=== PATIENT | female | born 1965 | race American Indian/Alaskan Native ===

== ENCOUNTER 2017-03-03 10:33 | Emergency (ER) | payer OTHER ==
[2017-03-03 10:46] VITALS: BP 115/76; PULSE 72; RESP 20; TEMP 98.8; O2SAT 99
--- NOTE | 2017-03-03 11:51 | C.PDOC ---
History Of Present Illness 52 yo female w/PMhx of HTN, NIDDM come in for evaluation of left ankle and foot itchy skin discoloration gradually developed for 3 months. Pt reports, was seen by PMD for current rash and received Rx: Clotrimazole and Hydrocortisone cream without improvement. Pt denies fever, chills, malaise, CP, SOB, dyspnea, diaphoresis, palpitation, cough, abd. pain, N/V, denies B/L calf pain, denies weakness, sensory or vascular deficits to B/L LEs, no risk factors for DVT, PE. Ambulate to ED for evaluation, not in any apparent distress. Time Seen by Provider: 03/03/17 11:22 Chief Complaint (Nursing): Abnormal Skin Integrity History Per: Patient Onset/Duration Of Symptoms: Gradual Past Medical History Reviewed: Historical Data, Nursing Documentation, Vital Signs Vital Signs: Last Vital Signs Temp 98.8 F 03/03/17 10:45 Pulse 72 03/03/17 10:45 Resp 20 03/03/17 10:45 BP 115/76 03/03/17 10:45 Pulse Ox 99 03/03/17 10:45 - Medical History PMH: Diabetes, HTN Surgical History: No Surg Hx Family History: States: No Known Family Hx - Social History Hx Alcohol Use: No Hx Substance Use: No - Immunization History Hx Tetanus Toxoid Vaccination: No Hx Influenza Vaccination: No Hx Pneumococcal Vaccination: No Review Of Systems Except As Marked, All Systems Reviewed And Found Negative. Constitutional: Negative for: Fever, Chills ENT: Negative for: Throat Pain, Throat Swelling Cardiovascular: Negative for: Edema, Light Headedness Respiratory: Negative for: Cough, Shortness of Breath, Wheezing Gastrointestinal: Negative for: Nausea, Vomiting, Abdominal Pain Musculoskeletal: Negative for: Neck Pain, Back Pain Skin: Positive for: Rash Neurological: Negative for: Weakness, Numbness, Altered Mental Status, Headache , Dizziness Physical Exam - Physical Exam Appears: Well, Non-toxic, No Acute Distress Skin: Normal Color, Warm, Rash (dry rash with skin thikening and brownish discoloration over Lateral left malleolu sand posterior aspect of ankle. NO erythema, no warm, no proximal streaking.) Throat: No Drooling Neck: Supple Cardiovascular: Rhythm Regular Respiratory: No Stridor, No Wheezing Gastrointestinal/Abdominal: Soft, No Tenderness, No Distention, No Guarding Back: No CVA Tenderness Extremity: No Pedal Edema, No Calf Tenderness (B/L), No Deformity Neurological/Psych: Oriented x3, Normal Speech, Normal Motor, Normal Sensation, Normal Reflexes ED Course And Treatment O2 Sat by Pulse Oximetry: 99 Pulse Ox Interpretation: Normal Progress Note: On re-eavluation, pt is afebrile, hemodynamicalys table. Non- toxic. PulsEOx 99% RA. ENT: no acute findings. Lungs: CTA B/L, BS equal B/L. Abd: benign. Neuorlogicaly intact. Skin: left ankle rash likely stasis dermatitis vs lichenification. Pt advised and ref. to F/u with PMD and Neuro, Derm in 2-3 days for re-eavl. return ifa ny new changes., Disposition Counseled Patient/Family Regarding: Diagnosis, Need For Followup - Disposition Referrals: Corbin Cheung MD [Staff Provider] - Disposition: HOME/ ROUTINE Disposition Time: 11:10 Condition: STABLE Additional Instructions: Follow up with PMD and Neurology for further evaluation, MARTHA test of B/L LEs return to ED if any worsening or new changes. Instructions: Stasis Dermatitis (ED) - Clinical Impression Clinical Impression: Lichenified eczema, Stasis dermatitis
[2017-03-03] MEDS ORDERED: Protamine 50mg/5mL Inj IV ONE (13:08)
== END 2017-03-03 12:20 | disposition home or self-care (01) ==
LOC: C.ER 10:33
DX: L28.0 Lichen simplex chronicus (principal); I87.2 Venous insufficiency (chronic) (peripheral)